=== PATIENT | female | born 1940 | race Caucasian/White ===

== ENCOUNTER 2019-07-21 17:47 | Inpatient (IN) | payer MEDICARE, OTHER, SELFPAY ==
[2019-07-21] VITALS (11 sets, daily range): BP systolic 105–129; BP diastolic 48–90; PULSE 68–72; RESP 18–30; TEMP 36.6–36.7; O2SAT 90–98; BMI 31.4
--- NOTE | ~2019-07-21 | XR_ITS ---
EXAMINATION: XR chest 1V portable EXAM DATE: 07/21/2019 18:42 INDICATION: Shortness of breath, weakness. History lung. TECHNIQUE: Portable AP frontal chest x-ray was obtained. Comparison is made to prior examination from 05/13/2017. FINDINGS: Again there is bibasilar airspace disease, appears somewhat linear. Could be atelectasis gi gabriel similar appearance in May. Can't exclude pneumonia, clinical correlation. No sizable pleural ef fusion or pneumothorax. Sternotomy wires are present without findings to suggest sternal dehiscence. The cardiomediastinal silhouette is prominent but magnified on this AP technique. Cardiac silhouette is stable in size compared to prior exam. The bones are osteopenic. There are bony degenerative bowers ges. IMPRESSION: Scattered subsegmental bibasilar atelectasis or possibly pneumonia. Reviewed, dictated and finalized at location A. IMPRESSION: Scattered subsegmental bibasilar atelectasis or possibly pneumonia .
--- NOTE | 2019-07-21 17:54 | ECG_ITS ---
Measurements Intervals [place] Rate: 73 P: [place]: 0 QRS: -5 QRSD: 81 T: 33 QT: 387 QTc: 428 Interpretive Statements SINUS OR ECTOPIC ATRIAL RHYTHM LOW QRS VOLTAGE IN PRECORDIAL LEADS BASELINE ARTIFACT- II, III, AVR, AVL, AVF, V1, V3, V6 BORDERLINE ECG Electronically Signed On 07-22-2019 6:54:34 CDT by Tamir Menezes D.O.
--- NOTE | 2019-07-21 18:06 | ED.ABDPAIN ---
HPI - Abdominal Pain General Chief Complaint: Urogenital-Female Stated Complaint: AMS, poss UTI Time Seen by Provider: 07/21/19 17:53 Source: patient Mode of arrival: ambulatory Limitations: no limitations History of Present Illness HPI narrative: Patient is an 79-year-old female who presents due to possible dehydration noting decreased appetite over the last couple of days lives at home with family patient on arrival is alert and oriented x3 patient was sent over for possible altered mentation however patient is alert and oriented on arrival patient denies any vomiting fever chills patient notes that she has had possible contact with COVID positive family members patient notes cough but denies dyspnea or other URI symptoms patient on arrival is in the room in no distress denying any pain. Related Data Allergies Allergy/AdvReac Type Severity Reaction Status Date / Time No Known Drug Allergies Allergy Unknown Unknown Verified 07/21/19 18:08 Review of Systems Review of Systems: All systems reviewed & are unremarkable except as noted in HPI and below PMFSH Past Medical History Medical History (Updated 07/21/19 @ 19:18 by Gerson Mayes PA-C) Bladder cancer Chronic back pain Lung cancer Obesity Surgical History Surgical History History of nephrectomy Social History Social History Smoking status: Never smoker Gender identity (if verbalized by the patient): Female Exam Narrative: Exam Narrative: GENERAL: Well-appearing, well-nourished, and in no acute distress. HEAD: Normocephalic, atraumatic. EYES: PERRLA and EOMI. ENT: Nares clear, no rhinorrhea or epistaxis. Mucous membranes moist. Oropharynx without tonsillar hypertrophy exudate or other lesions. NECK: Supple. No adenopathy or masses. CHEST: Clear to auscultation. No respiratory distress. No wheezes rales or rhonchi HEART: Regular rate and rhythm. No murmur heard. Normal peripheral pulses. ABDOMEN: Soft, nontender, nondistended EXTREMITIES: Normal range of motion. No edema. SKIN: Warm, dry, no rash. NEURO: No focal deficits. Alert and oriented x3. Cranial nerves II through XII grossly intact. Normal speech PSYCH: Normal mood and affect. Course Course Emergency Course: Patient in the room at this time aware of case findings treatment plan and diagnosis. Consultations Consultation #1: Discussed case with primary care who will accept the patient for observation spoke with Dr. Vickers Date: 07/21/19 Time: 19:17 MDM - Abdominal Pain MDM Narrative Medical decision making narrative: Patient in the room at this time will be admitted and treated for urinary tract infection dehydration and possible pneumonia secondary to COVID-19 with positive home contacts as noted. Patient hemodynamically stable at this time in no distress agreeing to stay in hospital is been hydrated and given antibiotics in the emergency department ECG Data EKG #1: ECG completion date: 07/21/19 ECG completion time: 18:05 normal rate, non-specific ST changes and NL axis Discharge Plan Discharge Clinical Impression: Urinary tract infection, Acute dehydration, Exposure to COVID-19 virus, Pneumonia Patient Disposition: Still a Patient Condition: Stable Follow-up/Referrals: PHYSICIAN NOT ON STAFF,NONSTAFF [Primary Care Provider] -
[2019-07-21] MEDS: LACTATED RINGERS 1,000 ML 999 ML IV CONT (18:22)
[2019-07-21 18:29] LABS: Basophils Percent Auto 0.2 % (0.2-1.2); Eosinophils Percent Auto 0.2 % (0-4.4); Hematocrit 43.4 % (37.0-47.0); Hemoglobin 13.1 g/dL (12.0-15.0); Immature Granulocyte Absolute 0.04 K/mm3 (0.00-0.031); Immature Granulocyte Percent A 0.5 % (0-0.5); Lymphocytes Absolute Auto 1.35 K/mm3 (0.9-3.2); Lymphocytes Percent Auto 15.8 % (18.3-44.2); Mean Corpuscular HGB Conc 30.2 g/dl (32-36); Mean Corpuscular Hemoglobin 28.2 pg (26-34); Mean Corpuscular Volume 93.5 fl (80-100); Monocytes Absolute Auto 0.9 K/mm3 (0.1-0.6); Monocytes Percent Auto 10.3 % (2.6-8.5); Neutrophils Absolute Auto 6.3 K/mm3 (1.3-6.7); Platelet Count Result 267 k/mm3 (150-375); Red Blood Count 4.64 M/mm3 (4.2-5.4); White Blood Count 8.6 K/mm3 (4.5-10.0)
[2019-07-21 18:38] LABS: Prothrombin Time 12.7 Seconds (11.1-14.7)
[2019-07-21 18:39] LABS: Partial Thromboplastin Time 26.7 SECONDS (22.3-36.8)
[2019-07-21 18:40] LABS: Add Urine Microscopic? YES; Appearance Urine Cloudy (Clear); Bacteria Urine 4+ /hpf; Bilirubin Urine Negative (Negative); Blood Urine Negative (Negative); Color Urine Yellow (Yellow); Glucose Urine UA Negative (Negative); Ketones Urine Negative (Negative); Leukocyte Esterase Ur 2+ LEU/UL (Negative); Mucus Urine Rare /lpf; Nitrate Urine Negative (Negative); Protein Urine Negative (Negative); RBC Urine 0-2 /hpf (0-2); Specific Grav Ur 1.016 (1.001-1.035); Squamous Epithelial Cell Urine Many /hpf (Few); WBC Clumps Urine Present /HPF; WBC Urine 51-75 /hpf
[2019-07-21 18:43] LABS: Alanine Aminotransferase 14 U/L (4-35); Albumin Level 3.8 g/dL (3.5-5.1); Alkaline Phosphatase 82 U/L (38-126); Aspartate Amino Transferase 31 U/L (14-36); Bilirubin,Total 0.4 mg/dL (0.2-1.3); Blood Urea Nitrogen 62 mg/dL (7-17); CRP 7.3 mg/dL (<1.0); Calcium 7.7 mg/dL (8.4-10.2); Carbon Dioxide 31 mmol/L (22-30); Chloride 99 mmol/L (98-107); Estimated CRCL calculation 26 ml/min; Estimated Glomerular Filt Rate 29; Glucose 91 mg/dL (65-105); Lipase 126 U/L (23-300); Sodium 140 mmol/L (137-145)
--- NOTE | 2019-07-21 19:43 | PC.NURSE ---
Attempted to contact POA listed on chart for patient's home meds, did not answer at this time. Patient aox2 at this time. Denies any current complaints.
--- NOTE | 2019-07-21 20:22 | ADMGEN ---
This patient, Emmanuelle William, was admitted to [facility] Surg Room 332-01. Patient/family oriented to hospital policies and general routines including ID bracelet, bed and alarms, visiting hours, pain management, procedures, bathroom and other care routines, personal items, smoking policy, room service/diet, and visiting hours. Valuables list has been completed. Information on how to activate the Rapid Response Team has been discussed. Patient/Family are encouraged to report perceived risks to care and to ask questions if they do not understand what they are told or what they should do.
--- NOTE | 2019-07-21 20:48 | PM.IMHP ---
H&P: HPI History of Present Illness Chief complaint: Family thought she was confused? Narrative: This is a pleasant 79 year old female with known chronic renal failure stage III who presented to the hospital today after her family thought she was confused. Apparently the patient has not been feeling well over the past few days with decreased appetite, tired, fatigued, and just sleeping more than usual. The patient herself is alert and oriented x 4 and denies any specific respiratory symptoms at this time. She denies any overt fevers, chills, headache, or shortness of breath. She reports a sporadic dry cough but nothing persistent. She also denies chest pain, sore throat, abdominal pain, dysuria, hematuria, diarrhea, open wounds or rectal bleeding. The patient was evaluated in the ER tonight and routine labs were obtained which were virtually unremarkable other than an abnormal urinalysis. CXR was obtained and read a scattered subsegmental bibasilar atelectasis or possibly pneumonia. On my review of the same film, I do not appreciate any infiltrate or consolidation. The patient has had direct contact with family members who tested positive for COVID-19 viral infection. The patient has been empirically treated with antibiotics for presumed UTI as well as presumed pneumonia? Review of Systems Review of Systems: All systems reviewed & are unremarkable except as noted in HPI and below PMFSH Past Medical History Medical History Bladder cancer Chronic back pain Lung cancer Obesity Surgical History Surgical History History of nephrectomy Social History Social History Smoking status: Never smoker Alcohol intake: former Substance use: never Gender identity (if verbalized by the patient): Female Spiritual care concerns: No Comments Family medical history unknown to patient. Meds Home Medications and Allergies Home Medications Medication Instructions Recorded Confirmed Type albuterol sulfate 1 puff INHALATION Q4-6H PRN 07/21/19 07/21/19 History atorvastatin 40 mg PO DAILY 07/21/19 07/21/19 History budesonide 0.5 mg INHALATION BID 07/21/19 07/21/19 History bupropion HCl 200 mg PO BID 07/21/19 07/21/19 History carvedilol 3.125 mg PO BID 07/21/19 07/21/19 History ferrous sulfate 325 mg PO DAILY 07/21/19 07/21/19 History formoterol fumarate [Perforomist] 20 mcg INHALATION BID 07/21/19 07/21/19 History furosemide 20 mg PO DAILY 07/21/19 07/21/19 History gabapentin 300 mg PO BID 07/21/19 07/21/19 History levothyroxine 25 mcg PO DAILY 07/21/19 07/21/19 History mirtazapine 15 mg PO HS 07/21/19 07/21/19 History oxycodone-acetaminophen 1 tablet PO Q6H PRN 07/21/19 07/21/19 History pramipexole 0.125 mg PO TID 07/21/19 07/21/19 History Allergies Allergy/AdvReac Type Severity Reaction Status Date / Time No Known Drug Allergies Allergy Unknown Unknown Verified 07/21/19 18:08 Vital Signs Vital Signs - 24 hr 07/21/19 18:00 07/21/19 18:11 07/21/19 18:15 Temperature 36.7 C Pulse Rate 72 72 71 Respiratory Rate 24 H 26 H 19 Blood Pressure 129/54 L Pulse Oximetry 90 07/21/19 18:27 07/21/19 18:30 07/21/19 18:34 Temperature Pulse Rate 70 Respiratory Rate 18 21 H 21 H Blood Pressure 129/54 L 125/48 L Pulse Oximetry 94 07/21/19 18:45 07/21/19 19:39 07/21/19 19:52 Temperature Pulse Rate 68 69 71 Respiratory Rate 30 H 18 18 Blood Pressure 105/50 L 106/52 L Pulse Oximetry 92 93 07/21/19 20:05 Temperature 36.6 C Pulse Rate 69 Respiratory Rate 20 Blood Pressure 117/90 Pulse Oximetry 98 Exam Const: General: cooperative, no acute distress, alert and awake Nutritional Appearance: obese Orientation/consciousness: patient oriented x3 HENMT: Head: normal to inspection General nose exam: Normal external nose present Face
[2019-07-21] MEDS: LACTATED RINGERS 1,000 ML 75 ML IV CONT (21:45)
[2019-07-22] VITALS (10 sets, daily range): BP systolic 130–135; BP diastolic 46–55; PULSE 65–84; RESP 16–18; TEMP 36.9–37.1; O2SAT 91–93
[2019-07-22] MEDS: FAMOTIDINE 20 MG/2 ML VIAL IV PUSH ×2 (00:11→09:24)
[2019-07-22 05:56] LABS: Basophils Percent Auto 0.2 % (0.2-1.2); Eosinophils Percent Auto 0.5 % (0-4.4); Hematocrit 38.3 % (37.0-47.0); Hemoglobin 11.7 g/dL (12.0-15.0); Immature Granulocyte Absolute 0.03 K/mm3 (0.00-0.031); Immature Granulocyte Percent A 0.5 % (0-0.5); Lymphocytes Absolute Auto 1.13 K/mm3 (0.9-3.2); Lymphocytes Percent Auto 19.7 % (18.3-44.2); Mean Corpuscular HGB Conc 30.5 g/dl (32-36); Mean Corpuscular Hemoglobin 28.3 pg (26-34); Mean Corpuscular Volume 92.7 fl (80-100); Mean Platelet Volume 10.3 fl (7.4-10.4); Monocytes Absolute Auto 0.5 K/mm3 (0.1-0.6); Neutrophils Percent Auto 70.1 % (45.5-73.1); Platelet Count Result 219 k/mm3 (150-375); Red Blood Count 4.13 M/mm3 (4.2-5.4); Red Cell Distribution Width 14.2 % (11.5-14.5); White Blood Count 5.8 K/mm3 (4.5-10.0)
[2019-07-22 06:17] LABS: Alanine Aminotransferase 11 U/L (4-35); Albumin Level 3.1 g/dL (3.5-5.1); Alkaline Phosphatase 47 U/L (38-126); Aspartate Amino Transferase 29 U/L (14-36); Bilirubin,Total 0.5 mg/dL (0.2-1.3); Blood Urea Nitrogen 53 mg/dL (7-17); Calcium 7.2 mg/dL (8.4-10.2); Carbon Dioxide 31 mmol/L (22-30); Chloride 103 mmol/L (98-107); Estimated CRCL calculation 28 ml/min; Estimated Glomerular Filt Rate 33; Glucose 77 mg/dL (65-105); Potassium 4.2 mmol/L (3.4-5.0); Sodium 139 mmol/L (137-145)
[2019-07-22] MEDS: carvediloL 3.125 MG TABLET PO ×2 (09:24→17:12)
[2019-07-22] MEDS: PRAMIPEXOLE 0.125 MG TABLET PO ×3 (09:24→17:12)
[2019-07-22] MEDS: ATORVASTATIN 40 MG TABLET PO (09:25)
[2019-07-22] MEDS: GABAPENTIN 300 MG CAPSULE PO ×2 (09:25→17:12)
[2019-07-22] MEDS: FERROUS SULFATE 324 MG TABLET PO (09:25)
[2019-07-22] MEDS: buPROPion HCL SR (12HR) 100 MG TABCR 200 MG PO ×2 (09:25→17:12)
[2019-07-22] MEDS: FUROSEMIDE 20 MG TABLET PO (09:25)
[2019-07-22] MEDS: LACTATED RINGERS 1,000 ML 75 ML IV CONT (12:39)
[2019-07-22 15:34] LABS: SARS-CoV-2 RNA PCR Positive
--- NOTE | 2019-07-22 16:52 | PM.DS ---
DS: Diagnosis Admitting Diagnosis Admitting Diagnosis: Unspecified abnormal findings in urine Discharge Diagnosis (1) COVID-19 virus detected: Code(s): U07.1 - COVID-19 Status: Acute (2) Urinary tract infection: Qualifiers: Hematuria presence: without hematuria Urinary tract infection type: acute cystitis Qualified Code(s): N30.00 - Acute cystitis without hematuria Code(s): N39.0 - Urinary tract infection, site not specified Status: Acute (3) Acute dehydration: Code(s): E86.0 - Dehydration Status: Acute (4) CKD (chronic kidney disease): Qualifiers: Chronic kidney disease stage: stage 3 (moderate) Qualified Code(s): N18.3 - Chronic kidney disease, stage 3 (moderate) Code(s): N18.9 - Chronic kidney disease, unspecified Status: Chronic DS: Summary Hospital Course Reason for hospitalization: Decreased appetite, dehydration Hospital Course: Mrs. William is an 79 y.o. female with PMH significant for hypothyroidism, COPD, hyperlipidemia, and chronic kidney disease who presented to the ED for evaluation of dehydration, decreased appetite, fatigue, and possible confusion although she was alert and oriented x4 on presentation to the ED. Initial vitals at presentation were: Temp Pulse Resp BP Pulse Ox 98.1 F 72 24 H 129/54 L 90 07/21/19 18:00 07/21/19 18:00 07/21/19 18:00 07/21/19 18:00 07/21/19 18:00 Initial workup in the ED revealed WBC 8,600, Hb 13.1, Hct 43.4, CO2 31, BUN 62, Cr 1.7, CRP 7.3, and UA with many squamous epithelial cells, WBC, WBC clumps, 4+ bacteria, and 3-4 hyaline casts. CXR revealed bibasilar airspace disease suggestive of atelectasis vs possible pneumonia. She was tested for COVID-19. Blood cultures were obtained. She was treated empirically with IV azithromycin and ceftriaxone and admitted to the hospitalist service under observation. She is on 2L per nasal cannula at baseline due to her COPD and remained on her baseline oxygen requirement during her stay. She requested to go home as she was feeling well with no complaints. She remained afebrile during her stay. She denied dyspnea at rest and with exertion. SARS-CoV-2 RNA testing was positive. I spent extensive time discussing the importance of close monitoring with the patient and her daughter. She was discharged with PO cefdinir for her UTI. She was discharged in stable condition on the evening of 07/22/19. Status at Discharge Overall status at discharge: patient is back to baseline Time Spent with Patient Time attestation: Total time spent providing and/or coordinating discharge services: 30 minutes Exam Narrative: Exam Narrative: General: Well-developed, well-nourished, 79 y.o. female lying in the semi-recumbent position in bed watching TV and in no acute distress. HEENT: Normocephalic and atraumatic. EOMI. Conjunctiva and lids normal. Sclerae anicteric. Mucous membranes moist. Posterior pharynx without erythema or exudate. Neck: Supple without lymphadenopathy or masses. Cardiac: Regular rate and rhythm. S1 and S2 normal. Lungs: Lungs are clear to auscultation bilaterally. Abdomen: Bowel sounds normoactive. Abdomen is soft, non-distended, and non-tender. Extremities: No lower extremity edema. Palpable DP and PT bilaterally. Neurological: Alert and oriented x3. CN II-XII grossly intact. Exam is non-focal. Speech is clear. Skin: Warm and dry. Psychiatric: Judgment and insight intact. Mood pleasant and affect normal. DS: Data Data Completed and Pending Labs on day of discharge: Labs from last 24 hours 07/22/19 07/22/19 07/21/19 05:49 05:49 18:25 WBC 5.8 RBC 4.13 L Hgb 11.7 L Hct 38.3 MCV 92.7 MCH 28.3 MCHC 30.5 L RDW 14.2 Plt Count 219 MPV 10.3 Immature Gran % (Auto) 0.5 Neut % (Auto) 70.1 Lymph % (Auto) 19.7 Sampson % (Auto) 9.0 H Eos % (Auto) 0.5 Baso % (Auto) 0.2 Lymph # (Auto) 1.13 Sampson # (Auto) 0.5
--- NOTE | 2019-07-24 08:31 | PC.NURSE ---
Urine cx sensitive to Cefdinir, which is what patient was sent home on.
== END 2019-07-22 18:31 | disposition home or self-care (01) | DRG 177 ==
LOC: ANHED 19:22 → ANH3MEDSUR 19:43
PROVIDERS: Emergency Medicine Emergency Medical Services; Admitting Provider Family Medicine; Emergency Provider Emergency Medicine; Visit Provider Family Medicine
DX: U07.1 COVID-19 (principal); J18.9 Pneumonia, unspecified organism; N39.0 Urinary tract infection, site not specified; J44.0 Chronic obstructive pulmonary disease with (acute) lower respiratory infection; E86.0 Dehydration; N18.3 Chronic kidney disease, stage 3 (moderate); E03.9 Hypothyroidism, unspecified; E66.9 Obesity, unspecified; M54.9 Dorsalgia, unspecified; Z68.31 Body mass index [BMI] 31.0-31.9, adult; Z85.118 Personal history of other malignant neoplasm of bronchus and lung; Z85.51 Personal history of malignant neoplasm of bladder
CPT/HCPCS: 36415; 51701; 71045; 80053; 81001; 83605; 83690; 85025; 85610; 85730; 86140; 87040; 87077; 87086; 87088; 87186; 87635; 93005; 94640; 96361; 96365; 96367; 99285; A9270; C9803; J0131; J0456; J0696; J7120; U0003

== ENCOUNTER 2019-12-03 13:31 | Emergency (ER) | payer MEDICARE, OTHER, SELFPAY ==
[2019-12-03] VITALS (28 sets, daily range): BP systolic 125–148; BP diastolic 54–67; PULSE 63–73; RESP 16–27; TEMP 36.6; O2SAT 87–98
--- NOTE | ~2019-12-03 | XR_ITS ---
XR chest 1V portable 12/03/2019 14:11 Indication: Weakness. History of lung cancer. Procedure: AP portable chest Comparison: Comparison to multiple prior studies sequentially, with oldest reviewed study dated 05/07. Findings: Status post median sternotomy for CABG. Cardiomegaly with interstitial edema. No pleural ef fusion or pneumothorax. No acute osseous abnormality. There is atherosclerosis and ectasia of the aor ta. Impression: 1: Cardiomegaly with mild interstitial edema. Reviewed, dictated and finalized at location A. Impression: 1: Cardiomegaly with mild interstitial edema.
--- NOTE | 2019-12-03 13:38 | ECG_ITS ---
Measurements Intervals [place] Rate: 67 P: -62 [place]: 148 QRS: -3 QRSD: 84 T: 31 QT: 395 QTc: 417 Interpretive Statements SINUS OR ECTOPIC ATRIAL RHYTHM LOW QRS VOLTAGE IN PRECORDIAL LEADS BASELINE ARTIFACT- II, III, AVF, V6 BORDERLINE ECG Electronically Signed On 12-03-2019 15:21:43 CDT by Tamir Menezes D.O.
--- NOTE | 2019-12-03 13:40 | ED.GENADULT ---
HPI - General Adult General Chief complaint: Weakness Stated complaint: WEAKNESS/FALLS Source: patient History of Present Illness HPI narrative: Patient is a 79 y/o female complaining of severe generalized weakness for several days. She states that her weakness is severe and there is no known alleviating or exacerbating factor. She usually uses a walker to get around. She fell yesterday due weakness. She denies any injury from the fall. She is able to move all 4 extremities. Related Data Home Medications Medication Instructions Recorded Confirmed Perforomist 20 mcg INHALATION BID 07/21/19 07/21/19 albuterol sulfate 1 puff INHALATION Q4-6H PRN 07/21/19 07/21/19 atorvastatin 40 mg PO DAILY 07/21/19 07/21/19 budesonide 0.5 mg INHALATION BID 07/21/19 07/21/19 bupropion HCl 200 mg PO BID 07/21/19 07/21/19 carvedilol 3.125 mg PO BID 07/21/19 07/21/19 ferrous sulfate 325 mg PO DAILY 07/21/19 07/21/19 furosemide 20 mg PO DAILY 07/21/19 07/21/19 gabapentin 300 mg PO BID 07/21/19 07/21/19 levothyroxine 25 mcg PO DAILY 07/21/19 07/21/19 mirtazapine 15 mg PO HS 07/21/19 07/21/19 oxycodone-acetaminophen 1 tablet PO Q6H PRN 07/21/19 07/21/19 pramipexole 0.125 mg PO TID 07/21/19 07/21/19 Allergies Allergy/AdvReac Type Severity Reaction Status Date / Time No Known Drug Allergies Allergy Unknown Unknown Verified 12/03/19 13:37 Review of Systems Constitutional: Constitutional: Denies chills, Denies fever(s), Denies headache(s) and Reports weakness Eyes: Eyes: Denies blurry vision ENT: Denies headache(s) and Denies neck pain Cardiovascular: Cardiovascular: Denies chest pain and Denies dyspnea Respiratory: Respiratory: Denies cough and Denies dyspnea Gastrointestinal: Gastrointestinal: Denies abdominal pain, Denies diarrhea, Denies nausea and Denies vomiting Genitourinary: Genitourinary: Denies hematuria and Denies dysuria Musculoskeletal: Musculoskeletal: Denies back pain and Denies neck pain Neurologic: Denies headache(s) and Reports weakness PMFSH Past Medical History Medical History Bladder cancer Chronic back pain Lung cancer Obesity Surgical History Surgical History History of nephrectomy Social History Social History Smoking status: Never smoker Alcohol intake: former Substance use: never Gender identity (if verbalized by the patient): Female Spiritual care concerns: No Exam Const: General: no acute distress and well developed Orientation/consciousness: oriented to person, oriented to place, oriented to time and patient oriented x3 HENMT: Head: normocephalic Ears: external ears normal General nose exam: Normal external nose present Eyes: General: appearance normal, both eyes and all related structures Conjunctivae: conjunctivae normal Neck: Neck: normal visual inspection and full ROM Chest: Chest palpation & inspection: normal inspection of the chest and no tenderness Resp: Effort & Inspection: normal respiratory effort Auscultation: clear to auscultation bilaterally Cardio: Rate: regular rate Rhythm: regular rhythm GI: GI Palp: No abdominal tenderness and Yes Soft to palpation Skin: General skin exam: normal color and turgor normal Rashes: no rashes (redness under both breast suggesting yeast infection) Wounds: wounds noted (left lower abdomen, superficial wound) Neuro: General: oriented to person, oriented to place, oriented to time and patient oriented x3 Cranial nerves: Yes CN's II-XII intact bilaterally Cognition (Neuro): normal cognition Speech: normal speech Motor exam (neuro): 5/5 motor strength present throughout Sensory Exam: normal sensation Coordination: [id number] test normal and [id number] test normal Extrem: General: normal to inspection, full ROM and no pedal edema Psych: Appearance: grossly normal Me
[2019-12-03 13:46] LABS: Basophils Percent Auto 0.4 % (0.2-1.2); Eosinophils Absolute Auto 0.1 K/mm3 (0-0.3); Eosinophils Percent Auto 0.7 % (0-4.4); Hematocrit 46.8 % (37.0-47.0); Hemoglobin 14.6 g/dL (12.0-15.0); Immature Granulocyte Absolute 0.06 K/mm3 (0.00-0.031); Immature Granulocyte Percent A 0.6 % (0-0.5); Lymphocytes Absolute Auto 1.33 K/mm3 (0.9-3.2); Lymphocytes Percent Auto 12.8 % (18.3-44.2); Mean Corpuscular HGB Conc 31.2 g/dl (32-36); Mean Corpuscular Hemoglobin 28.7 pg (26-34); Mean Corpuscular Volume 92.1 fl (80-100); Mean Platelet Volume 10.5 fl (7.4-10.4); Monocytes Absolute Auto 0.6 K/mm3 (0.1-0.6); Monocytes Percent Auto 6.2 % (2.6-8.5); Neutrophils Absolute Auto 8.2 K/mm3 (1.3-6.7); Neutrophils Percent Auto 79.3 % (45.5-73.1); Platelet Count Result 271 k/mm3 (150-375); Red Blood Count 5.08 M/mm3 (4.2-5.4); Red Cell Distribution Width 13.2 % (11.5-14.5); White Blood Count 10.4 K/mm3 (4.5-10.0)
[2019-12-03 13:59] LABS: Alanine Aminotransferase 19 U/L (4-35); Albumin Level 4.4 g/dL (3.5-5.1); Alkaline Phosphatase 86 U/L (38-126); Anion Gap 8 mmol/L (8-16); Aspartate Amino Transferase 31 U/L (14-36); Bilirubin,Total 0.3 mg/dL (0.2-1.3); Blood Urea Nitrogen 51 mg/dL (7-17); Calcium 9.8 mg/dL (8.4-10.2); Carbon Dioxide 31 mmol/L (22-30); Chloride 97 mmol/L (98-107); Estimated CRCL calculation 28 ml/min; Estimated Glomerular Filt Rate 36; Glucose 78 mg/dL (65-105); Potassium 4.5 mmol/L (3.4-5.0); Sodium 136 mmol/L (137-145)
[2019-12-03 14:01] LABS: Add Urine Microscopic? YES; Appearance Urine Clear (Clear); Bilirubin Urine Negative (Negative); Color Urine Yellow (Yellow); Glucose Urine UA Negative (Negative); Ketones Urine Negative (Negative); Leukocyte Esterase Ur 1+ LEU/UL (Negative); Nitrate Urine Positive (Negative); Protein Urine Negative (Negative); RBC Urine 0-2 /hpf (0-2); Specific Grav Ur 1.015 (1.001-1.035); Squamous Epithelial Cell Urine Few /hpf (Few); Urobilinogen Urine Negative mg/dL (<2.0); WBC Urine 31-50 /hpf
[2019-12-03 14:03] LABS: Blood Urine Negative (Negative)
[2019-12-03] MEDS: SODIUM CHLORIDE 0.9% IV 1,000 ML 999 ML IV CONT (15:16)
== END 2019-12-03 17:04 | disposition home or self-care (01) ==
PROVIDERS: Emergency Provider Emergency Medicine
DX: N39.0 Urinary tract infection, site not specified (principal); N18.9 Chronic kidney disease, unspecified; Z85.51 Personal history of malignant neoplasm of bladder; Z85.118 Personal history of other malignant neoplasm of bronchus and lung; Z90.5 Acquired absence of kidney
CPT/HCPCS: 36415; 71045; 80053; 81001; 85025; 87077; 87086; 87088; 87186; 93005; 96365; 99284; J0696; J7030

== ENCOUNTER 2020-01-10 10:35 | Outpatient (CLI) | payer MEDICARE, OTHER, SELFPAY ==
--- NOTE | ~2020-01-10 | XR_ITS ---
EXAMINATION: XR hip RT min 2V DATE: 01/10/2020 11:08 INDICATION: Right hip pain. TECHNIQUE: 2 views of right hip were obtained. COMPARISON: None. FINDINGS: Bone alignment is normal. No fracture. There is mild right hip osteoarthritis. Osteitis pub is is noted. IMPRESSION: 1. Mild right hip osteoarthritis. Reviewed, dictated and finalized at location A.
--- NOTE | ~2020-01-10 | XR_ITS ---
EXAMINATION: XR knee RT 3V DATE: 01/10/2020 11:08 INDICATION: Acute right knee pain. TECHNIQUE: 3 views of right knee were obtained. COMPARISON: None. FINDINGS: Bone alignment is normal. No fracture. There is moderate osteoarthritis of medial compartme nt and mild osteoarthritis of lateral and patellofemoral compartments. There is a small knee joint ef fusion. There is prepatellar soft tissue swelling, consistent with bursitis. There are surgical clips in the medial soft tissues. IMPRESSION: 1. Moderate right knee osteoarthritis. 2. Small right knee joint effusion. 3. Prepatellar bursitis. Reviewed, dictated and finalized at location A.
== END 2020-01-10 10:36 | disposition home or self-care (01) ==
PROVIDERS: PCP Physician Assistant; Visit Provider Physician Assistant
DX: M17.11 Unilateral primary osteoarthritis, right knee (principal); M25.461 Effusion, right knee; M70.41 Prepatellar bursitis, right knee; M16.11 Unilateral primary osteoarthritis, right hip
CPT/HCPCS: 73502; 73562